=== PATIENT | male | born 1980 | race Caucasian/White ===

== ENCOUNTER 2017-06-21 20:24 | Emergency (ER) | payer BC ==
--- NOTE | 2017-06-21 21:16 | ED ---
General Adult HPI - General Chief complaint: Wound/Laceration Stated complaint: Leg lac Time Seen by Provider: 06/21/17 20:47 Source: patient, RN notes reviewed Mode of arrival: ambulatory Limitations: no limitations - History of Present Illness Initial comments: 36-year-old male presents to the emergency department for a chief complaint of laceration to the left lateral thigh. Patient states he was climbing out of the bed of his truck when he stepped down and felt his leg catch on something which caused a laceration. Patient denies falling or hitting his head. Patient states it was very painful at first but the pain has subsided somewhat. Patient states he did not fall or hit his head. Patient states he is able to walk using the left leg. Patient has full sensation in the left leg. Patient states his tetanus is definitely up to date. - Related Data Previous Rx's Medication Instructions Recorded Cephalexin [Keflex] 500 mg PO Q12HR #10 cap 06/21/17 Allergies Allergy/AdvReac Type Severity Reaction Status Date / Time No Known Allergies Allergy Verified 06/21/17 20:26 Review of Systems ROS Statement: Those systems with pertinent positive or pertinent negative responses have been documented in the HPI. ROS Other: All systems not noted in ROS Statement are negative. Past Medical History Past Medical History: No Reported History Past Surgical History: Hernia Repair, Orthopedic Surgery Smoking Status: Never smoker Past Alcohol Use History: Occasional Past Drug Use History: None Reported General Exam Limitations: no limitations General appearance: alert, in no apparent distress Head exam: Present: atraumatic, normocephalic, normal inspection Eye exam: Present: normal appearance, PERRL, EOMI. Absent: scleral icterus, conjunctival injection, periorbital swelling Respiratory exam: Present: normal lung sounds bilaterally. Absent: respiratory distress, wheezes, rales, rhonchi, stridor Cardiovascular Exam: Present: regular rate, normal rhythm, normal heart sounds. Absent: systolic murmur, diastolic murmur, rubs, gallop, clicks Extremities exam: Present: other (There is an 8 cm laceration to the left anterior lateral thigh. Fashion is exposed. There is a small 3 cm laceration through the fascia. Muscle appears intact. Patient has full range of motion of the left lower extremity. Pedal pulse 2+. Capillary refill less than 2 seconds.) Course Vital Signs 06/21/17 06/21/17 20:26 23:04 Temperature 97.8 F 97.6 F Pulse Rate 69 63 Respiratory 18 16 Rate Blood Pressure 137/72 129/63 O2 Sat by Pulse 98 97 Oximetry Procedures - Procedures Initial comment: Body area: left anterolateral thigh Laceration length: 8 cm Foreign bodies: no foreign bodies Tendon involvement: none Nerve involvement: none Vascular damage: no Anesthesia: local infiltration Local anesthetic: 20 mL 1% lidocaine w/ epi Preparation: Patient was prepped and draped in the usual sterile fashion. Irrigation solution: saline + iodine Irrigation method: sterile water /iodine jet lavage Skin closure: 4 simple interrupted sutures of absorbable 4-0 Vicryl were used to close the fascia as well as deep tissue. Eleven simple interrupted and one horizontal mattress 3-0 Ethilon sutures used to close the superficial tissue. Technique: interupted Dressing: antibiotic ointment/ gauze Patient tolerance: Patient tolerated the procedure well with no immediate complications. Medical Decision Making - Medical Decision Making 36-year-old male presents to the emergency department for chief complaint of laceration occurring one hour ago. Patient was stepping out of the bed of his truck when his leg caught and he felt his skin tear. Patient states he is up-to -date on his tetanus. Patient has full movement and sensation of the left lower extremity. Neurovascular intact. X-ray of the left femur shows no acute fractures. No large radiopaque foreign bodies evident. There may be a very tiny punctate foreign bodies at the inferior aspect of the laceration. Wound was cleaned again with sterile saline and iodine with jet lavage. The fascia was closed with absorbable Vicryl sutures. The wound was then approximated with one horizontal mattress and 11 simple interrupted sutures made of 3-0 Ethilon. Patient was put on Keflex prophylactically. He will follow up with primary care provider in one to 2 days. He will return in 10 days to have sutures removed. Disposition Clinical Impression: Laceration Disposition: HOME SELF-CARE Condition: Good Instructions: Care For Your Stitches (ED), Laceration (ED) Additional Instructions: Please take Keflex as directed. Take ibuprofen or Tylenol for pain relief. Please follow-up with your primary care provider in one to 2 days. Please return to the emergency department if you notice signs of infection or develop fevers. Please return to have stitches removed in 10 days. Prescriptions: Cephalexin [Keflex] 500 mg PO Q12HR #10 cap Referrals: Negro Ramirez MD [Primary Care Provider] - 1-2 days Time of Disposition: 22:58
--- NOTE | 2017-06-21 21:19 | XR ---
EXAMINATION TYPE: XR femur LT DATE OF EXAM: 06/21/2017 COMPARISON: NONE HISTORY: Laceration left thigh TECHNIQUE: 2 view left femur FINDINGS: No acute fractures are evident. There is a large laceration along the anterior mid thigh. N o large radiopaque foreign bodies are evident. On the lateral projection of punctate density may be a t the margin an AP view of second punctate density may be adjacent at the laceration. IMPRESSION: 1. Very tiny punctate foreign bodies may be at the laceration inferior aspect. 2. No large radiopaque foreign bodies. 3. No acute osseous abnormality.
[2017-06-21 23:05] VITALS: BP 129/63; PULSE 63; RESP 16; TEMP 97.6
== END 2017-06-21 23:11 | disposition home or self-care (01) ==
LOC: EC 20:24
DX: S71.112A Laceration without foreign body, left thigh, initial encounter (principal); S76.922A Laceration of unspecified muscles, fascia and tendons at thigh level, left thigh, initial encounter; W45.8XXA Other foreign body or object entering through skin, initial encounter; Y93.39 Activity, other involving climbing, rappelling and jumping off
CPT/HCPCS: 12034; 99283

== ENCOUNTER → 2018-06-18 | Outpatient (CLI) | payer BC ==
[2018-06-18 15:43] LABS: HCT 43.4 % (39.0-53.0); HGB 14.3 gm/dL (13.0-17.5); MCH 30.8 pg (25.0-35.0); MCV 93.3 fL (80.0-100.0); Mean Platelet Volume 6.9; Platelet Count 257 k/uL (150-450); RBC 4.65 m/uL (4.30-5.90); RDW 12.3 % (11.5-15.5); WBC 7.4 k/uL (3.8-10.6)
[2018-06-18 15:47] LABS: Appearance,Urine Clear (Clear); Bilirubin,Urine Negative (Negative); Blood,Urine Negative (Negative); Color,Urine Light Yellow; Glucose,Urine (UA) Negative (Negative); Ketones,Urine Negative (Negative); Leukocyte Esterase,Urine Negative (Negative); Nitrite,Urine Negative (Negative); PH, Urine 6.5 (5.0-8.0); Protein,Urine Negative (Negative); Specific Gravity,Urine 1.014 (1.001-1.035); Urobilinogen,Urine <2.0 mg/dL (<2.0)
--- NOTE | 2018-06-18 15:51 | XR ---
EXAMINATION TYPE: XR chest 2V DATE OF EXAM: 06/18/2018 COMPARISON: NONE TECHNIQUE: PA and lateral views submitted. HISTORY: Presurgical FINDINGS: The lungs are clear and there is no pneumothorax, pleural effusion, or focal pneumonia. Hyperinflat ion suggests asthma or COPD. Correlate clinically. Apical pleural thickening noted. IMPRESSION: 1. No acute process.
[2018-06-18 15:57] LABS: Partial Thromboplastin Time 26.2 sec (22.0-30.0); Prothrombin Time 10.7 sec (9.0-12.0)
[2018-06-18 19:35] LABS: Anion Gap 8.1 mmol/L (4.00-12.00); Carbon Dioxide 26.9 mmol/L (21.6-31.8); Potassium 3.9 mmol/L (3.5-5.5)
== END | disposition home or self-care (01) ==
LOC: LABWHC1 14:43
PROVIDERS: ATTEND Orthopaedic Surgery Orthopaedic Surgery of the Spine
DX: Z01.818 Encounter for other preprocedural examination (principal); M51.27 Other intervertebral disc displacement, lumbosacral region; Z01.812 Encounter for preprocedural laboratory examination
CPT/HCPCS: 36415; 71046; 80048; 81003; 85027; 85610; 85730; 93005